=== PATIENT | male | born 1980 | race Two or more races ===

== ENCOUNTER 2025-01-23 10:50 | Day surgery (SDC) | payer MEDICAID, SELFPAY ==
[2025-01-22 12:52] VITALS: BMI 34.5
[2025-01-23] VITALS (15 sets, daily range): BP systolic 125–187; BP diastolic 80–113; PULSE 55–97; RESP 12–18; TEMP 36.7–37.1; O2SAT 92–99; BMI 34.4
[2025-01-23] MEDS: hydrALAZINE INJ 20 MG/ML VIAL 10 MG IV ×2 (12:22→13:58)
--- NOTE | 2025-01-23 12:34 | SUR.PREOP ---
NOTIFIED AT 1215 OF PERSISTENT ELEVATED B/P. NEW ORDERS GIVEN FOR HYDRALAZINE 10 MG. GIVEN AT 1222. B/P AT 1225 163/99. B/P AT 1235 143/92. ASYMPTOMATIC.
[2025-01-23] MEDS: RINGERS LACTATED 1000 ML 1,000 ML 60 ML IV (13:58)
[2025-01-23] MEDS: LIDOCAINE JELLY 2% (Urojet) 10 ML TUBE TOP (14:00)
[2025-01-23] MEDS: fentaNYL CIT INJ 50 mCg/ML AMP 2ML (ASD USE ONLY) IV (14:02)
[2025-01-23] MEDS: MIDAZOLAM INJ 1 MG/ML VIAL 2 ML (ASD USE ONLY) 2 MG IV (14:10)
[2025-01-23] MEDS: DiphenhydrAMINE INJ 50 MG/ML VIAL 25 MG IV (14:10)
== END 2025-01-23 15:08 | disposition home or self-care (01) ==
PROVIDERS: PCP Physician Assistant; Referring Provider Specialist; Visit Provider Specialist
PROC: 0DBE8ZX Excision of Large Intestine, Via Natural or Artificial Opening Endoscopic, Diagnostic (ICD-10-PCS; CPT 45380; principal; 2025-01-23 13:30)
DX: Z12.11 Encounter for screening for malignant neoplasm of colon (principal); K60.2 Anal fissure, unspecified; K64.9 Unspecified hemorrhoids; Z80.0 Family history of malignant neoplasm of digestive organs
CPT/HCPCS: 45378; J0360; J1200; J2250; J3010; J7120